=== PATIENT | female | born 1985 | race Asian ===

== ENCOUNTER 2018-10-10 16:09 | Emergency (ER) | payer OTHER ==
[~2018-10-10] VITALS: Ht 157.5 cm; Wt 56.8 kg
[2018-10-10] MEDS ORDERED: ONDANSETRON 4MG/2ML VIAL (J2405) IV ONE (16:30)
[2018-10-10] MEDS ORDERED: NS 1,000 ML IV ONE (16:30)
[2018-10-10 17:00] LABS: BASO % 0.5 % (0.0-1.0); HEMOGLOBIN 14.9 g/dl (12.0-15.5); LYMPH # 1.9 10^3/uL (1.5-4.5); LYMPH % 22.9 % (24.0-44.0); MEAN CORPUSCULAR HEMOGLOBIN 32.2 pg (27.0-33.0); MEAN CORPUSCULAR HGB CONC 34.7 g/dl (32.0-36.5); MEAN CORPUSCULAR VOLUME 92.9 fl (80.0-96.0); MONO # 0.3 10^3/uL (0.0-0.8); MONO % 3.8 % (0.0-5.0); NEUTROPHILS # 6.1 10^3/uL (1.8-7.7); NEUTROPHILS % 72.4 % (36.0-66.0); PLATELET COUNT, AUTOMATED 307 10^3/uL (150-450); RED BLOOD COUNT 4.63 10^6/uL (4.00-5.40); WHITE BLOOD COUNT 8.4 10^3/uL (4.0-10.0)
[2018-10-10 17:16] LABS: HCG, SERUM QUALITATIVE NEGATIVE (NEGATIVE)
[2018-10-10 17:25] LABS: ALBUMIN 4.3 GM/DL (3.2-5.2); ALT/SGPT 13 U/L (12-78); BILIRUBIN,DIRECT 0.3 MG/DL (0.0-0.2); BILIRUBIN,TOTAL 0.9 MG/DL (0.2-1.0); BLOOD UREA NITROGEN 13 MG/DL (7-18); CALCIUM LEVEL 9.1 MG/DL (8.5-10.1); CARBON DIOXIDE LEVEL 22 MEQ/L (21-32); CHLORIDE LEVEL 107 MEQ/L (98-107); CREATININE FOR GFR 0.74 MG/DL (0.55-1.30); GLOMERULAR FILTRATION RATE > 60.0 (>60); GLUCOSE, FASTING 93 MG/DL (70-100); LIPASE 198 U/L (73-393); POTASSIUM SERUM 3.5 MEQ/L (3.5-5.1); SODIUM LEVEL 139 MEQ/L (136-145)
[2018-10-10] MEDS ORDERED: ACETAMINOPHEN 325 MG TAB PO ONE (18:15)
[2018-10-10] MEDS ORDERED: ONDA4TAB6 PO (18:40)
[2018-10-10 18:58] VITALS: BP 138/79
== END 2018-10-10 18:59 | disposition home or self-care (01) ==
LOC: M ED 16:09
DX: R11.2 Nausea with vomiting, unspecified (principal); K21.9 Gastro-esophageal reflux disease without esophagitis; M70.70 Other bursitis of hip, unspecified hip
CPT/HCPCS: 80048; 80076; 81001; 83690; 84703; 85025; 96361; 96374; 99284; J2405

== ENCOUNTER 2020-02-13 12:19 | Emergency (ER) | payer OTHER ==
[~2020-02-13 12:19] MED LIST: ONDA4TAB6 PO
[2020-02-13] MEDS ORDERED: ONDA4TAB6 PO (13:37)
[2020-02-13] MEDS ORDERED: ONDANSETRON 4 MG ORAL DISINTEGRATING TAB PO ONE ×2 (13:45→15:15)
[2020-02-13 15:39] VITALS: BP 119/71
== END 2020-02-13 16:05 | disposition home or self-care (01) ==
LOC: M ED 12:19
DX: U07.1 COVID-19 (principal); K21.9 Gastro-esophageal reflux disease without esophagitis
CPT/HCPCS: 36415; 99284; Q0162

== ENCOUNTER → 2020-04-10 | Outpatient (CLI) | payer OTHER ==
--- NOTE | 2020-04-10 09:57 | REP ---
INDICATION: RECHECK. COMPARISON: None. TECHNIQUE: Two views of the right humerus FINDINGS: There is a presumed subacute fracture of the distal humeral shaft with periosteal changes suggesting healing. Correlation with prior examinations recommended to evaluate for satisfactory alignment. IMPRESSION: Healing fracture. Correlation required. <Electronically signed by Surjit Reyez > 04/10/20 [id number]
== END ==
LOC: M SOG 04-07 14:14
PROVIDERS: ATTEND Orthopaedic Surgery Sports Medicine
DX: M79.601 Pain in right arm (principal)

== ENCOUNTER → 2020-10-17 | Outpatient (REF) ==
--- NOTE | 2020-10-17 14:00 | REP ---
INDICATION: ARM PAIN COMPARISON: 11/18/2019 and 04/10/2020. TECHNIQUE: Three views right humerus. FINDINGS: There is an old healed fracture, with bridging callus, in the distal 3rd of the humeral shaft. There is stable alignment. No acute fracture or dislocation is seen. IMPRESSION: Old healed fracture distal humeral shaft. <Electronically signed by Isaiah Gifford > 10/17/20 [id number]
== END ==
LOC: M PLAIMG 11:24
PROVIDERS: ATTEND Internal Medicine
DX: Z00.00 Encounter for general adult medical examination without abnormal findings (principal)